=== PATIENT | male | born 1980 | race Two or more races ===

== ENCOUNTER → 2019-09-16 16:42 | Outpatient (CLI) | payer BC, SELFPAY ==
[2019-09-18 18:16] LABS: Rapid Plasma Reagin Ab Titer Non Reactive (NonRea<1:1)
[2019-09-20 14:33] LABS: HSV, IgM I/II Combination <0.91 Ratio (0.00-0.90)
== END ==
PROVIDERS: Visit Provider Nurse Practitioner Family
DX: N48.9 Disorder of penis, unspecified (principal)
CPT/HCPCS: 86592; 86790

== ENCOUNTER 2020-11-22 10:00 | Emergency (ER) | payer BC, SELFPAY ==
[2020-11-22 10:00] VITALS: BP 138/42; PULSE 83; RESP 14; TEMP 37.2; O2SAT 99; BMI 28.3
[2020-11-22 10:16] VITALS: BP 138/42; PULSE 83; RESP 14; TEMP 37.2
--- NOTE | 2020-11-22 10:19 | HMH.EDUTC ---
[facility] [place] Disposition Clinical Impression: Viral syndrome, Encounter for laboratory testing for COVID-19 virus Disposition: Home, Self-Care Condition on Discharge: Good Instructions: DI for COVID-19 (Suspected or Confirmed ), Coronavirus Disease 2019, Preventing the Spread of Coronavirus Discharge Instructions Additional Instructions: *Monitor Temp, Over the counter Motrin or Tylenol as directed/as needed Tylenol every 4 hours and Motrin every 6 hours (as long as your family doctor has told you that you can take it) for fever or pain. and straight to ER if unable to lower temp less than 101.0 after medication given *Warm salt water gargles may help to soothe the throat *Throat Lozenges *Warm fluids like tea with honey may help to soothe the throat *Sleep elevated *Humidifier/Vaporizer Follow up IMMEDIATELY for new or worsening symptoms or no Noticeable improvement over the next 48-72 hours. 911 for difficulty breathing or swallowing You were tested for today for COVID19 your test result should be back in the next 24-48 hours, you may call to the [facility] to see if your test results are back in the next 48 hours [phone] [facility] hours are 9am-9pm You was given a handout with instructions for Self Quarantine and Self isolation for while you wait on test results and what to do if they are positive If you are positive the Health Dept will be contacting you also Referrals: PCP,No [Primary Care Provider] - As needed Forms: Work/School Release Time of Disposition: 10:23 Medical Decision Making - Chay Inquiry Pt receiving controlled substance: No Chay was queried for this patient: No Vital Signs: 11/22/20 10:00 11/22/20 10:16 Temperature 98.9 F 98.9 F Temperature Source Oral Oral Pulse Rate 83 Pulse Rate [Right] 83 Respiratory Rate 14 14 Blood Pressure 138/42 L Blood Pressure [Right Arm] 138/42 L Blood Pressure Mean [Right Arm] 74 02 Sat by Pulse Oximetry 99 Oxygen Flow Rate (LPM) 99 - Lab Data Lab results reviewed: Yes: I reviewed the patient's lab results. Orders (Tests/Meds): ORDERS Category Date Time Status Covid-19 Nasal PCR Sendout P&C Stat Lab 11/22/20 10:07 Ordered [facility] [place] HPI - General Stated complaint: covid test Time Seen by Provider: 11/22/20 10:19 Description of Symptoms (Recalled from Triage Doc. by RN): pt request covid test and flu test. pt c/o body aches and fever HEENT Symptoms (Recalled from RN notes): No Resp Symptoms (Recalled from RN notes): Yes Skin Symptoms (Recalled from RN notes): No MS Symptoms (Recalled from RN notes): No Functional Status (Recalled from RN notes): wnl - History of Present Illness Provider Complaint: Patient states that he has been having fever, body aches and chills States that he wanted to get tested for COVID and flu States that today he was feeling a little better but wanted to get tested - Related Data Previous Rx's Medication Instructions Recorded acyclovir 400 mg tablet 400 mg PO TID 10 Days #30 tab 09/16/19 triamcinolone acetonide 0.1 % 1 applic TOPICAL BID #15 g 09/16/19 topical cream Allergies Allergy/AdvReac Type Severity Reaction Status Date / Time No Known Allergies Allergy Verified 11/22/20 10:16 - Worker's Comp Is this a Worker's Comp case?: No Is this an H Worker's Comp?: No Is this a [place] Worker's Comp?: No [facility] History - Hepatitis A Screen Drug use history?: No High risk sexual behaviors?: No History of sexually transmitted infection?: No Currently employed?: No Childcare worker?: No Do you have indoor plumbing?: Yes Do you have electricity?: Yes Attestation statement:: This patient has been screened for Hepatitis A risk factors. I have reviewed the patient's past medical history: Yes Amputation: No Fractures: No - Social History Smoking Status: Never smoker Alcohol Intake: never Alcohol Intake Frequency:: other Substance Use Type: denies use Occupational Status: unemployed Family Hx::
[2020-11-22 20:46] LABS: UTC Influenza A Antigen Negative (Negative); UTC Influenza B Antigen Negative (Negative)
[2020-11-23 11:40] LABS: Covid-19 Nasal PCR Sendout P&C NEGATIVE
== END 2020-11-22 10:29 | disposition home or self-care (01) ==
PROVIDERS: Emergency Provider Nurse Practitioner
DX: Z20.822 Contact with and (suspected) exposure to COVID-19 (principal); B34.9 Viral infection, unspecified
CPT/HCPCS: 87804; 99202; G0463; U0004

== ENCOUNTER 2024-02-06 18:31 | Outpatient (CLI) | payer BC, SELFPAY ==
[2024-02-06 18:33] LABS: Basophils # 0.1 K/mm3 (0-0.2); Basophils % 0.9 % (0.1-2.0); Eosinophils # 0.5 K/mm3 (0.0-0.4); Eosinophils % 8.2 % (0.1-12.0); Hematocrit 47.4 % (42.0-52.0); Hemoglobin 15.6 g/dL (14.1-18.0); Lymphocytes # 2.2 K/mm3 (0.7-4.5); Lymphocytes % 35.5 % (10-50); Mean Corpuscular HGB Conc 32.8 g/dL (31.8-35.4); Mean Corpuscular Volume 91.6 fl (80-94); Mean Platelet Volume 9.1 fl (7.4-10.4); Monocytes # 0.4 K/mm3 (0.1-1.0); Monocytes % 5.6 % (1.7-9.3); Neutrophils # 3.1 K/mm3 (1.8-7.8); Neutrophils % 49.8 % (37.0-80.0); Platelet Count 240 K/mm3 (142-424); Red Blood Count 5.18 M/mm3 (4.60-6.20); Red Cell Distribution Width 13.6 % (11.5-17.5); White Blood Count 6.3 K/mm3 (4.8-10.8)
[2024-02-06 18:45] LABS: Alanine Aminotransferase 39 U/L (12-78); Albumin Level 4.7 g/dl (3.5-5.0); Albumin/Globulin Ratio 1.6 (1.1-1.8); Alkaline Phosphatase 108 U/L (38-126); Anion Gap 10.7 mEq/L (5-15); Aspartate Amino Transferase 37 U/L (17-59); Bilirubin,Total 0.9 mg/dl (0.2-1.3); Blood Urea Nitrogen 13 mg/dl (9-20); Calcium 9.3 mg/dl (8.4-10.2); Carbon Dioxide 28 mmol/L (22.0-30.0); Chloride 105 mmol/L (98-107); Chol/HDL Ratio 6.2 (1-3.5); Cholesterol 228 mg/dl (140-200); Estimated Glomerular Filt Rate 105 ml/min (>60); GFR (African American) 127 ML/MIN (>60); Globulin 2.9 g/dL (1.3-3.2); Glucose 101 mg/dl (74-100); HDL Cholesterol 37 mg/dl (40-60); Potassium 3.7 mmoL/L (3.5-5.1); Sodium 140 mmol/L (136-145); Total Protein,Serum 7.6 g/dl (6.3-8.2); Triglycerides 250 mg/dl (30-150); VLDL Cholesterol 50 mg/dL (0-40)
[2024-02-06 18:56] LABS: Direct LDL Cholesterol 93.98 mg/dL (100-129)
[2024-02-06 19:05] LABS: 25-OH Vitamin D, Total 27.3 ng/mL (30-100)
[2024-02-06 19:12] LABS: Hemoglobin A1C 5.7 % (4.0-6.0)
[2024-02-06 19:18] LABS: Thyroid Stimulating Hormone 1.06 uIU/mL (0.465-4.68)
[2024-02-08 10:08] LABS: Rapid Plasma Reagin Ab Titer Non Reactive titer (NonRea<1:1)
[2024-02-09 21:08] LABS: Neisseria gonorrhoeae, NAA Negative (Negative)
== END 2024-02-06 23:59 ==
LOC: LAB.DROPOF 18:32
PROVIDERS: PCP Family Medicine; Visit Provider Family Medicine
DX: E55.9 Vitamin D deficiency, unspecified (principal); R53.83 Other fatigue; R21 Rash and other nonspecific skin eruption; N50.89 Other specified disorders of the male genital organs; Z68.23 Body mass index [BMI] 23.0-23.9, adult
CPT/HCPCS: 80053; 80061; 82306; 83036; 84443; 85025; 86593; 86695; 86790; 87491; 87591